=== PATIENT | male | born 1960 | race Caucasian/White ===

== ENCOUNTER → 2019-04-12 | Outpatient (CLI) | payer MEDICARE ==
[~2019-04-12] MED LIST: GADOBUTROL 7.5 MMOL/7.5 ML (GADAVIST) VIAL IV ONE; TRAM50TA2 PO
[2019-04-12 12:52] LABS: BUN/CREATININE RATIO 9; CREATININE SERUM 1.03 MG/DL (0.60-1.30); GFR ESTIMATED > 60
--- NOTE | 2019-04-12 13:33 | Diagnostic Imaging Report ---
PROCEDURE: MR imaging of the brain with and without contrast. TECHNIQUE: Multiplanar, multisequence MR imaging of the brain was performed with and without contrast. INDICATION: Headaches. Dizzy spells. Memory loss. COMPARISON: CTA head and neck on 09/26/2015. FINDINGS: No acute ischemia, mass, or hemorrhage. No abnormal enhancement. Chronic microvascular disease is seen in the periventricular and subcortical white matter. Encephalomalacia is visualized in the right frontotemporal region representing prior MCA territory infarct. The ventricles and cortical sulci are diffusely prominent. The basilar cisterns are symmetric and unremarkable. The sellar and suprasellar regions have a normal appearance. The brainstem and posterior fossa are unremarkable. The paranasal sinuses and mastoid air cells demonstrate normal signal characteristics. The globes and orbits are symmetric and unremarkable. The scalp and calvarium have a normal appearance. IMPRESSION: 1. No acute ischemia, mass, or hemorrhage. No abnormal enhancement. 2. Chronic microvascular disease. Encephalomalacia is seen in the right frontotemporal region representing prior MCA territory infarct. 3. Generalized parenchymal volume loss. Dictated by: Dictated on workstation # [id number]
== END ==
LOC: RAD 12:16
PROVIDERS: ATTEND Nurse Practitioner Primary Care
DX: G93.89 Other specified disorders of brain (principal); I10 Essential (primary) hypertension; R51 Headache; R41.3 Other amnesia; R42 Dizziness and giddiness; Z86.73 Personal history of transient ischemic attack (TIA), and cerebral infarction without residual deficits
CPT/HCPCS: 36415; 70553; 82565; 84520

== ENCOUNTER → 2020-07-17 | Outpatient (CLI) | payer MEDICARE ==
[~2020-07-17] MED LIST changes: -GADOBUTROL 7.5 MMOL/7.5 ML (GADAVIST) VIAL IV ONE; -TRAM50TA2 PO; +TRM50T PO
--- NOTE | 2020-07-17 12:49 | Diagnostic Imaging Report ---
EXAMINATION: CT Chest without contrast (lung screening). TECHNIQUE: Multiple contiguous axial images were obtained through the chest without the use of intravenous contrast according to lung cancer screening protocol. All CT scans use one or more of the following dose optimizing techniques: automated exposure control, MA and/or KvP adjustment based on a patient size and exam type, or iterative reconstruction. HISTORY: 69 pack year history of smoking. COMPARISON: None available. FINDINGS: Thyroid: The thyroid is normal. Mediastinum: Heart size is normal without significant pericardial effusion. Calcifications of the aorta and coronary vessels. Thoracic aorta is normal in caliber. No suspicious lymphadenopathy. Lungs and airways: Emphysematous changes of the lungs without consolidation, pleural effusion, or pneumothorax. Right basilar linear atelectasis or scarring. There is a 1.6 cm cystic lesion with surrounding groundglass consolidation and central septation seen within the inferior left upper lobe (series 2 image 132). There is a 0.5 cm subpleural pulmonary nodule within the anterior right middle lobe (series 2 image 159). The airways are normal. Upper abdomen: The subphrenic structures are normal. Musculoskeletal: Degenerative changes of the spine without suspicious osseous lesion or compression fracture. IMPRESSION: 1. A 1.6 cm predominantly cystic subpleural nodule within the inferior left upper lobe. Recommend three-month follow-up with low-dose CT. No significant solid component for evaluation of PET/CT or image guided biopsy. 2. A 0.5 cm right middle lobe subpleural pulmonary nodule. Attention on follow-up imaging. LUNG-RADS CATEGORY: 4a MODIFIER: None. Dictated by: Dictated on workstation # [id number]
== END ==
LOC: MERGE 06-26 11:06 → RAD 10:54
PROVIDERS: ATTEND Nurse Practitioner Family
DX: Z12.2 Encounter for screening for malignant neoplasm of respiratory organs (principal); R91.8 Other nonspecific abnormal finding of lung field; Z87.891 Personal history of nicotine dependence
CPT/HCPCS: 71271

== ENCOUNTER → 2020-10-11 | Outpatient (CLI) | payer MEDICARE ==
[~2020-10-11] MED LIST changes: +CATHETER FLUSH 10 ML SYR IV PRN; +HOLD METFORMIN - RECEIVED CONTRAST 20 ML VIAL IV SCH; +IOHEXOL 350 MG/ML 100 ML (OMNIPAQUE 350) VIAL IV ONE; +NS 100 ML (IVPB) BAG IV ONE
[2020-10-11 13:34] LABS: BUN/CREATININE RATIO 11; CREATININE SERUM 0.95 MG/DL (0.60-1.30); GFR ESTIMATED > 60
--- NOTE | 2020-10-11 15:25 | Diagnostic Imaging Report ---
PROCEDURE: CT chest with contrast only. TECHNIQUE: Multiple contiguous axial images were obtained through the chest after administration of intravenous contrast. Auto Exposure Controls were utilized during the CT exam to meet ALARA standards for radiation dose reduction. DATE: October 11, 2020. COMPARISON: Chest radiograph September 26, 2015. CT chest July 17, 2020. INDICATION: 60-year-old male, cough. FINDINGS: There are somewhat reticulonodular opacities in the superior aspect of the right lower lobe on axial image 93 measuring approximately 18 x 8 mm in size compared to 14 x 7 mm in size on July 17, 2020. There are contiguous adjacent vessels. There are upper lobe predominant findings of centrilobular and paraseptal emphysema. There is a focal area of cystic change in the left upper lobe on axial image 91 with adjacent mild opacification which is unchanged since July 17, 2020. There is no additional focal airspace consolidation. There is no pneumothorax. There is no pleural effusion. The central airways are patent. There is no identified central pulmonary embolus. There is an abnormally enlarged right hilar lymph node measuring 17 mm in short axis on axial image 95. There is no additional identified abnormally enlarged mediastinal or axillary lymph node. The heart is not enlarged. There is no pericardial effusion. There are atherosclerotic calcifications. There is no additional identified abnormality in the imaged portions of the upper abdomen. There is no identified acute bony abnormality. IMPRESSION: CT CHEST. 1. Somewhat linear and nodular area of opacification in the superior aspect of the right upper lobe which does appear to be contiguous with adjacent vessels, this measures slightly increased in size since July 17, 2020. This potentially could relate to a vascular malformation. Considering mild increase in size. PET/CT should be considered for further evaluation, particularly given the abnormally enlarged right perihilar lymph node. 2. Stable and peripheral cystic opacification in the left upper lobe. 3. Upper lobe predominant findings of emphysema. Dictated by: Dictated on workstation # [id number]
== END ==
LOC: RAD 13:01
PROVIDERS: ATTEND Nurse Practitioner Family
DX: J43.2 Centrilobular emphysema (principal)
CPT/HCPCS: 36415; 71260; 82565; 84520

== ENCOUNTER 2021-09-16 09:20 | Emergency (ER) | payer MEDICARE ==
[~2021-09-16] VITALS: Ht 185 cm; Wt 77.0 kg
[~2021-09-16 09:20] MED LIST changes: -CATHETER FLUSH 10 ML SYR IV PRN; -HOLD METFORMIN - RECEIVED CONTRAST 20 ML VIAL IV SCH; -IOHEXOL 350 MG/ML 100 ML (OMNIPAQUE 350) VIAL IV ONE; -NS 100 ML (IVPB) BAG IV ONE
[2021-09-16 10:50] LABS: ALBUMIN 4.1 GM/DL (3.2-4.5)
[2021-09-16 10:51] LABS: POTASSIUM 4.7 MMOL/L (3.6-5.0)
[2021-09-16 10:52] LABS: CALCIUM 9.7 MG/DL (8.5-10.1)
[2021-09-16 10:53] LABS: BASOPHILS # (AUTO) 0.1 10^3/uL (0.0-0.1); BASOPHILS % (AUTO) 1 % (0-10); EOSINOPHILS # (AUTO) 0.1 10^3/uL (0.0-0.3); EOSINOPHILS % (AUTO) 1 % (0-10); HEMATOCRIT 40 % (40-54); HEMOGLOBIN 13.5 g/dL (13.3-17.7); LYMPHOCYTES # (AUTO) 1.2 10^3/uL (1.0-4.0); LYMPHOCYTES % (AUTO) 12 % (12-44); MEAN CORPUSCULAR HEMOGLOBIN 29 pg (25-34); MEAN CORPUSCULAR HGB CONC 33 g/dL (32-36); MEAN CORPUSCULAR VOLUME 87 fL (80-99); MEAN PLATELET VOLUME 8.6 fL (9.0-12.2); MONOCYTES # (AUTO) 1.2 10^3/uL (0.0-1.0); MONOCYTES % (AUTO) 12 % (0-12); NEUTROPHILS # (AUTO) 7.5 10^3/uL (1.8-7.8); NEUTROPHILS % (AUTO) 74 % (42-75); PLATELET COUNT 421 10^3/uL (130-400); WHITE BLOOD COUNT 10.1 10^3/uL (4.3-11.0)
[2021-09-16 10:53] LABS: TOTAL PROTEIN 8.1 GM/DL (6.4-8.2)
[2021-09-16 10:55] LABS: BILIRUBIN,TOTAL 0.8 MG/DL (0.1-1.0)
[2021-09-16 10:59] LABS: PROTHROMBIN TIME PATIENT 13.7 SEC (12.2-14.7)
--- NOTE | 2021-09-16 11:22 | Diagnostic Imaging Report ---
EXAMINATION: Chest 2 view HISTORY: SOA COMPARISON: 10/11/2020 FINDINGS: Heart size and pulmonary vasculature are normal. There is a right-sided pneumothorax with up to 2.9 cm of pleural separation. Right basilar atelectasis or consolidation. No significant pleural effusion. Left lung is clear. The osseous structures are intact. IMPRESSION: 1. Right-sided pneumothorax with 2.9 cm of pleural separation. 2. Right basilar atelectasis or consolidation. Critical finding. Report was communicated to Dr. Flores by Dr. Ozzie Contreras at 11:18 AM on 09/16/2021. Dictated by: Dictated on workstation # [id number]
--- NOTE | 2021-09-16 12:42 | ED Respiratory ---
General Chief Complaint: Respiratory Problems Stated Complaint: SOA Nursing Triage Note: PT PRESENTS TO ED VIA POV FROM HOME WITH COMPLAINTS OF INCREASED SOA X 2-3 DAYS. PT ALSO REPORTS EAR PAIN AND NUMBNESS IN HIS ARMS. PT APPEARS ANXIOUS UPON ARRIVAL TO ED. PT STATES HE HAS AN APPOINTMENT WITH A PLUG SAW OPERATOR NEXT WEEK DUE TO HIS CHRONIC SOA HE HAS STRUGGLED WITH. Source: patient Exam Limitations: no limitations History of Present Illness Date Seen by Provider: Sep 16, 2021 Allergies and Home Medications Allergies Uncoded Allergies: asprin (Allergy, Unknown, soa, 09/26/15) Patient Home Medication List Hydrocodone/Acetaminophen (Hydrocodone-Acetamin 5-325 mg) 1 Each Tablet, 1 TAB PO Q4H PRN for PAIN-MODERATE (5-7) Prescribed by: RACHEL MAYEN on 09/16/21 1407 Tramadol HCl (Tramadol HCl) 50 Mg Tablet, 50 MG PO, (Reported) Entered as Reported by: DOLORES HUSDON on 09/26/15 1839 Past Xczjgaf-Zrjzhr-Kgjjgr Hx Patient Social History Tobacco Use?: No Smoking Status: Former Smoker Substance use?: No Additional substance use comme: USE TO EAT MARIJUANA Alcohol Use?: Yes Alcohol Frequency: Rarely Pt feels they are or have been: No Seasonal Allergies Seasonal Allergies: No Past Medical History Surgery/Hospitalization HX: PMH: CVA, HIGH CHOLESTEROL, GERD Orthopedic Physical Exam Vital Signs - First Documented 09/16/21 09:49 Temp 36.0 Pulse 97 Resp 24 B/P (MAP) 141/92 (108) Pulse Ox 94 Capillary Refill : Less Than 3 Seconds Height: 6'1" Weight: 160lbs. oz. 72.659199nc; 22.00 BMI Method: Progress/Results/Core Measures Suspected Sepsis SIRS Temperature: Pulse: 97 Respiratory Rate: 24 Laboratory Tests 09/16/21 10:47: White Blood Count 10.1 Blood Pressure 141 /92 Mean: 108 Laboratory Tests 09/16/21 09:42: Creatinine 1.00, INR Comment 1.0, Total Bilirubin 0.8 09/16/21 10:47: Platelet Count 421H Results/Orders Lab Results Laboratory Tests Test 09/16/21 09:42 09/16/21 10:47 Range/Units Prothrombin Time 13.7 12.2-14.7 SEC INR Comment 1.0 0.8-1.4 Activated Partial Thromboplast Time 30 24-35 SEC Sodium Level 129 L 135-145 MMOL/L Potassium Level 4.7 3.6-5.0 MMOL/L Chloride Level 100 98-107 MMOL/L Carbon Dioxide Level 18 L 21-32 MMOL/L Anion Gap 11 5-14 MMOL/L Blood Urea Nitrogen 12 7-18 MG/DL Creatinine 1.00 0.60-1.30 MG/DL Estimat Glomerular Filtration Rate 86 BUN/Creatinine Ratio 12 Glucose Level 119 H 70-105 MG/DL Calcium Level 9.7 8.5-10.1 MG/DL Corrected Calcium 9.6 8.5-10.1 MG/DL Magnesium Level 2.0 1.6-2.4 MG/DL Total Bilirubin 0.8 0.1-1.0 MG/DL Aspartate Amino Transf (AST/SGOT) 36 H 5-34 U/L Alanine Aminotransferase (ALT/SGPT) 30 0-55 U/L Alkaline Phosphatase 125 40-136 U/L Myoglobin 67.6 10.0-92.0 NG/ML Troponin I < 0.028 <0.028 NG/ML C-Reactive Protein High Sensitivity 5.96 H 0.00-0.50 MG/DL Total Protein 8.1 6.4-8.2 GM/DL Albumin 4.1 3.2-4.5 GM/DL White Blood Count 10.1 4.3-11.0 10^3/uL Red Blood Count 4.67 4.30-5.52 10^6/uL Hemoglobin 13.5 13.3-17.7 g/dL Hematocrit 40 40-54 % Mean Corpuscular Volume 87 80-99 fL Mean Corpuscular Hemoglobin 29 25-34 pg Mean Corpuscular Hemoglobin Concent 33 32-36 g/dL Red Cell Distribution Width 12.0 10.0-14.5 % Platelet Count 421 H 130-400 10^3/uL Mean Platelet Volume 8.6 L 9.0-12.2 fL Immature Granulocyte % (Auto) 0 % Neutrophils (%) (Auto) 74 42-75 % Lymphocytes (%) (Auto) 12 12-44 % Monocytes (%) (Auto) 12 0-12 % Eosinophils (%) (Auto) 1 0-10 % Basophils (%) (Auto) 1 0-10 % Neutrophils # (Auto) 7.5 1.8-7.8 10^3/uL Lymphocytes # (Auto) 1.2 1.0-4.0 10^3/uL Monocytes # (Auto) 1.2 H 0.0-1.0 10^3/uL Eosinophils # (Auto) 0.1 0.0-0.3 10^3/uL Basophils # (Auto) 0.1 0.0-0.1 10^3/uL Immature Granulocyte # (Auto) 0.0 0.0-0.1 10^3/uL B-Type Natriuretic Peptide < 10.0 <100.0 PG/ML My Orders Orders - RACHEL VIRGEN MD Ekg Tracing (09/16/21 10:22) Monitor-Rhythm Ecg Trace Only (09/16/21 10:22) Ed Iv/Invasive Line Start (09/16/21 10:28) Bnp Renzo (09/16/21 10:28) Cbc With Automated Diff (09/16/21 10:28) Comprehensive Metabolic Panel (09/16/21 10:28) Hs C Reactive Protein (09/16/21 10:28) Chest Pa/Lat (2 View) (09/16/21 10:44) Magnesium (09/16/21 10:44) Myoglobin Serum (09/16/21 10:44) Protime With Inr (09/16/21 10:44) Partial Thromboplastin Time (09/16/21 10:44) O2 (09/16/21 10:44) Troponin I Renzo (09/16/21 10:44) Chest 1 View, Ap/Pa Only (09/16/21 12:04) Chest 1 View, Ap/Pa Only (09/16/21 12:47) Fentanyl Inj (Sublimaze Injection) (09/16/21 13:15) Hydrocodone/Apap 5/325 Tablet (Lortab 5 (09/16/21 13:15) Medications Given in ED Current Medications Medications Dose Ordered Sig/Babak Route Start Time Stop Time Status Last Admin Dose Admin Acetaminophen/ Hydrocodone Bitart 1 ea ONCE ONCE PO 09/16/21 13:15 09/16/21 13:16 DC 09/16/21 13:15 1 EA Fentanyl Citrate 50 mcg ONCE ONCE IVP 09/16/21 13:15 09/16/21 13:16 DC 09/16/21 13:15 50 MCG Vital Signs/I&O 09/16/21 09/16/21 09:49 14:13 Temp 36.0 Pulse 97 90 Resp 24 20 B/P (MAP) 141/92 (108) 116/85 Pulse Ox 94 94 Capillary Refill : Less Than 3 Seconds Blood Pressure Mean: 108 ECG Initial ECG Impression Date: Sep 16, 2021 Initial ECG Impression Time: 09:37 Initial ECG Rate: 98 Initial ECG Rhythm: Normal Sinus Initial ECG Intervals: Normal Initial ECG Impression: Normal Comment Normal sinus rhythm with no ST elevation or depression. No abnormal intervals or axis deviation. Departure Impression Primary Impression: Spontaneous pneumothorax Additional Impression: COPD (chronic obstructive pulmonary disease) Qualified Codes: J44.9 - Chronic obstructive pulmonary disease, unspecified Disposition: 01 HOME, SELF-CARE Condition: Improved Departure-Patient Inst. Decision time for Depature: 12:35 Referrals: FELIPE DAVENPORT,LOCAL PHYSICIAN (PCP) Primary Care Physician Patient Instructions: COPD Exacerbation, Adult ED, Pneumothorax (Collapsed Lung) Add. Discharge Instructions: Keep your follow-up appointment with the cnc technician. Follow-up with Dr. Davenport (general surgeon) for follow-up on your collapsed lung. Please call his office this afternoon or tomorrow morning to confirm an appointment time. He would like to see you on Thursday about 1:00. You may shower if you can adequately cover the Thoravent in a watertight fashion. Otherwise, take a cloth or sponge bath. Call with any questions or concerns. You may continue using your albuterol inhaler up to 4 puffs in a 4-hour period of time. Return to the ER if you have any worsening of condition. All discharge instructions reviewed with patient and/or family. Voiced understanding. Scripts Hydrocodone/Acetaminophen (Hydrocodone-Acetamin 5-325 mg) 1 Each Tablet 1 TAB PO Q4H PRN for PAIN-MODERATE (5-7), #15 TAB Prov: RACHEL VIRGEN MD 09/16/21 RACHEL VIRGEN MD Sep 16, 2021 12:42
--- NOTE | 2021-09-16 13:01 | Diagnostic Imaging Report ---
INDICATION: Right chest pain Portable chest 12:47 PM There is right thoracostomy tube. There is a small right apical pneumothorax measuring 1 cm in thickness. There is minimal right basilar atelectasis. Left lung is clear. IMPRESSION: Small right pneumothorax and right basilar infiltrate or atelectasis. No change from earlier in the day. Dictated by: Dictated on workstation # [id number]
[2021-09-16] MEDS ORDERED: fentaNYL INJ 100 MCG/2 ML AMP IVP ONE (13:15)
[2021-09-16] MEDS ORDERED: HYDROcodone/APAP 5 MG/325 MG (LORTAB) TAB PO ONE (13:15)
--- NOTE | 2021-09-16 13:23 | Diagnostic Imaging Report ---
INDICATION: Pneumothorax followup. Portable chest 12:08 PM There continues to be a small right apical pneumothorax measuring 7 mm. There is infiltrate present at the right lung base. IMPRESSION: Small right apical pneumothorax with some residual right basilar infiltrate. Dictated by: Dictated on workstation # [id number]
[2021-09-16] MEDS ORDERED: ACHD5005 PO (14:06)
[2021-09-16 14:13] VITALS: BP 116/85
== END 2021-09-16 14:13 | disposition home or self-care (01) ==
LOC: EDUNIT# 09:20 → ER 09:22
DX: J93.83 Other pneumothorax (principal); J44.9 Chronic obstructive pulmonary disease, unspecified; Z87.891 Personal history of nicotine dependence
CPT/HCPCS: 32551; 36415; 71045; 71046; 80053; 83735; 83874; 83880; 84484; 85025; 85610; 85730; 86141; 93005; 93041

== ENCOUNTER 2021-09-18 14:47 | Inpatient (IN) | payer MEDICARE ==
[~2021-09-18] VITALS: Ht 185 cm; Wt 77.0 kg
[~2021-09-18 14:47] MED LIST changes: -CLOP75TA28 PO; -DICL100G13 TOP; -DIPH50CA33 PO; -EZET10TA49 PO; -FLUT1AER IH; -IBUP-1780 PO; -MAGN400T39 PO; -MULT-974 PO; -PANT40GR PO; -PANT40TA52 PO; -POTA99TA26 PO; -ROPI0.5T4 PO; -RT-ALBUINH IH; -UMEC62.5 PO
[2021-09-18] MEDS ORDERED: DICLOFENAC 1% GEL 100 GM (VOLTAREN) TUBE TOP PRN (15:15)
[2021-09-18 15:50] VITALS: BP 130/83
[2021-09-18 16:02] VITALS: BP 130/83
--- NOTE | 2021-09-18 16:19 | Diagnostic Imaging Report ---
INDICATION: Pneumothorax. Status post chest tube placement. COMPARISON: Earlier the same day. FINDINGS: Single frontal radiographic view of the chest was obtained and demonstrates interval near-complete evacuation of previously described large right-sided pneumothorax. Indwelling small bore chest tube remains in place. There is persistent consolidation of the right lung base. Left lung remains clear. There is no large effusion or pneumothorax on the left. Cardiac silhouette is partially obscured, but appears to be within normal limits. Osseous structures show no acute adverse interval change. IMPRESSION: 1. Near complete interval evacuation of right-sided pneumothorax. 2. Persistent consolidation in the right lung base. Continued follow-up to resolution is advised. Dictated by: Dictated on workstation # [id number]
[2021-09-18] MEDS ORDERED: RT-ALBUTEROL/IPRATROPIUM 3 ML (DUONEB) VIAL INH PRN (16:30)
[2021-09-18] MEDS: RT-ALBUTEROL/IPRATROPIUM 3 ML (DUONEB) VIAL INH SCH ×2 (18:34→21:45)
[2021-09-18] MEDS ORDERED: PANT40GR PO (18:41)
[2021-09-18] MEDS ORDERED: CLOP75TA28 PO (18:41)
[2021-09-18] MEDS ORDERED: EZET10TA49 PO (18:41)
[2021-09-18] MEDS: eZETimibe 10 MG (ZETIA) TABLET PO SCH (19:54)
[2021-09-18 20:17] VITALS: BP 108/70
[2021-09-18 23:49] VITALS: BP 115/73
[2021-09-19] VITALS (13 sets, daily range): BP systolic 105–135; BP diastolic 71–102
[2021-09-19] MEDS: RT-ALBUTEROL/IPRATROPIUM 3 ML (DUONEB) VIAL INH SCH ×6 (02:19→22:40)
[2021-09-19] MEDS: RT--FLUTICASONE/SALMETEROL 113-14 (AIRDUO RespiCLICK) IH SCH ×2 (06:59→19:26)
[2021-09-19] MEDS: UMECLIDINIUM BROMIDE (INCRUSE ELLIPTA) 7'S IH SCH (06:59)
--- NOTE | 2021-09-19 07:28 | Consultation - Hospitalist ---
HPI History of Present Illness: HPI/Chief Complaint Patient is 7-year-old male with past medical history of stroke, hyperlipidemia. COPD who was direct admitted from Dr. Davenport's clinic due to pneumothorax. He was seen in the emergency department on September 16 and a Thora vent was placed. He followed up with Dr. Davenport yesterday pneumothorax that expanded to 5 cm. He was admitted for further management. I am consulted for medical management. His only complaint to me is that he is very anxious regarding a CAT scan coming up. He states he will get short of breath. He is previously been premedicated with Ativan before imaging and is requesting this again. Source: patient Date Seen 09/19/21 Attending Physician Felipe Davenport DO PCP No,Local Physician Referring Physician Date of Admission Sep 18, 2021 at 14:52 Home Medications & Allergies Home Medications Reviewed patient Home Medication Reconciliation performed by pharmacy medication reconciliations food science technician and/or nursing. Patients Allergies have been reviewed. Allergies Allergies Uncoded Allergies asprin ( Allergy, Unknown, soa, 09/26/15) Past Ksbtdfe-Ryitvl-Rusjkg Hx Patient Social History Tobacco Use?: No Smoking Status: Former Smoker Smokeless Tobacco Frequency: Former User Use of E-Cig and/or Vaping dev: No Substance use?: Yes Substance type: Marijuana Substance frequency: Rarely Alcohol Use?: Yes Alcohol type: Hard Liquor Alcohol Frequency: Rarely Pt feels they are or have been: No Seasonal Allergies Seasonal Allergies: No Current Status Advance Directives: No Communicates: Verbally Primary Language: [place] Sensory deficits: Vision impairment Implanted or Applied Medical D: None Past Medical History Surgeries: Orthopedic Family Medical History Reviewed Nursing Family Hx No Pertinent Family Hx Review of Systems Constitutional: no symptoms reported EENTM: no symptoms reported Respiratory: cough, short of breath Cardiovascular: no symptoms reported Gastrointestinal: no symptoms reported Genitourinary: no symptoms reported Musculoskeletal: no symptoms reported Skin: no symptoms reported Psychiatric/Neurological: Anxiety Physical Exam Physical Exam Vital Signs Vital Signs - First Documented 09/18/21 09/18/21 09/18/21 15:35 15:50 18:34 Temp 36.8 Pulse 95 Resp 18 B/P (MAP) 130/83 (99) Pulse Ox 94 O2 Delivery Room Air FiO2 93 Capillary Refill : Height, Weight, BMI Height: 6'1" Weight: 160lbs. oz. 72.918130wy; 22.49 BMI Method: General Appearance: No Apparent Distress, Chronically ill, Thin HEENT: PERRL/EOMI, Moist Mucous Membranes; No Scleral Icterus (L), No Scleral Icterus (R) Neck: Normal Inspection, Supple Respiratory: No Accessory Muscle Use, Decreased Breath Sounds (absent breath sounds on right) Cardiovascular: Regular Rate, Rhythm, No Murmur Gastrointestinal: Normal Bowel Sounds, Non Tender Extremity: No Calf Tenderness, No Pedal Edema Neurologic/Psychiatric: Alert, Oriented x3 Results Results/Procedures Labs Laboratory Tests 09/19/21 08:36 Patient resulted labs reviewed. Imaging: Reviewed Imaging Report Imaging [facility], [place] NAME: ANDREE GARZA [facility] REC#: [id number] PT STATUS: ADM IN : 1960 PHYSICIAN: FELIPE DAVENPORT DO ADMIT DATE: 09/18/21 Signed Date of Exam:09/18/21 CHEST 1 VIEW, AP/PA ONLY INDICATION: Pneumothorax. Status post chest tube placement. COMPARISON: Earlier the same day. FINDINGS: Single frontal radiographic view of the chest was obtained and demonstrates interval near-complete evacuation of previously described large right-sided pneumothorax. Indwelling small bore chest tube remains in place. There is persistent consolidation of the right lung base. Left lung remains clear. There is no large effusion or pneumothorax on the left. Cardiac silhouette is partially obscured, but appears to be within normal limits. Osseous structures show no acute adverse interval change. IMPRESSION: 1. Near complete interval evacuation of right-sided pneumothorax. 2. Persistent consolidation in the right lung base. Continued follow-up to resolution is advised. Dictated by: Dictated on workstation # [id number] Dict: 09/18/21 1615 Trans: 09/18/211655 [facility] [id number] Interpreted by: GAURAV ANDRADE MD Electronically signed by: GAURAV ANDRADE MD 09/18/211655 [facility] [place], [place] NAME: ANDREE GARZA [facility] REC#: [id number] PT STATUS: ADM IN : 1960 PHYSICIAN: LE MARTINS MD ADMIT DATE: 09/18/21/ Signed Date of Exam:09/19/21 CHEST 1 VIEW, AP/PA ONLY INDICATION: Pneumothorax Portable chest 8:27 AM There has been increase in the volume of the right pneumothorax. It now measures 3.5 cm in diameter laterally and at the apex. There continues to be a consolidation in the right lower lung. Left lung remains clear. IMPRESSION: Interval increase in the volume of the right pneumothorax compared with previous day. Critical finding Still attempting to reach [place]. . Dictated by: Dictated on workstation # [id number] Dict: 09/19/21 0847 Trans: 09/19/21 1054 CVB [id number] Interpreted by: ALICE ABBASI MD Electronically signed by: ALICE ABBASI MD 09/19/21 1054 Assessment/Plan Assessment and Plan Assess & Plan/Chief Complaint Spontaneous pneumothorax Management per primary Plan for CT today May need IR to place pigtail catheter Anxiety Atarax available prn Ativan just prior to CT h/o CVA HLD Continue home meds COPD Continue home inhalers MAT protocol DVT ppx: Lovenox LE MARTINS MD Sep 19, 2021 07:28
--- NOTE | 2021-09-19 07:33 | Progress Note - Surgery ---
VLAD PALMER 09/19/21 0733: Subjective Date Seen by a Provider: Sep 19, 2021 Time Seen by a Provider: 06:54 Subjective/Events-last exam Pt reports that that his breathing feels worse today than it did yesterday. Reports that he is getting SOB when he gets up and walks to the bathroom or across the room to get items. States that he has been wheezing also. Pt is concerned about why his breathing is not improving. When asked he does endorse that he was using his incentive spirometer and he said he used it about 10-15 times yesterday. Review of Systems General: No Chills, No Night Sweats HEENT: No Visual Changes, No Eye Pain Pulmonary: Dyspnea, Cough Cardiovascular: No: Chest Pain, Palpitations Gastrointestinal: No: Nausea, Vomiting, Abdominal Pain Musculoskeletal: No: neck pain, back pain Neurological: No: Weakness, Numbness Objective Exam Vital Signs Date Time Temp Pulse Resp B/P (MAP) Pulse Ox O2 Delivery O2 Flow Rate FiO2 09/19/21 07:10 Room Air 09/19/21 07:08 Room Air 09/19/21 07:03 Room Air 93 09/19/21 03:55 36.6 93 18 126/78 (94) 93 Room Air 09/19/21 02:19 Room Air 93 09/18/21 23:49 36.4 93 18 115/73 (87) 95 Room Air 09/18/21 21:50 Room Air 94 09/18/21 21:46 Room Air 94 09/18/21 20:17 37.0 91 19 108/70 (83) 93 Room Air 09/18/21 20:14 Room Air 09/18/21 18:34 Room Air 93 09/18/21 16:02 36.8 95 94 09/18/21 15:50 36.8 95 18 130/83 (99) 94 Room Air 09/18/21 15:35 Room Air I & O 09/19/21 07:00 Intake Total 2070 ml Balance 2070 ml Capillary Refill : General Appearance: WD/WN, Anxious HEENT: PERRL/EOMI; No Photophobia Neck: Non Tender, Supple Respiratory: No Accessory Muscle Use, No Respiratory Distress, Decreased Breath Sounds (in right upper and middle lobe) Cardiovascular: Regular Rate, Rhythm, No Murmur, Normal Peripheral Pulses Gastrointestinal: non tender, soft Extremity: Normal Capillary Refill, Non Tender, No Calf Tenderness Neurologic/Psychiatric: Alert, Oriented x3 Skin: Normal Color, Warm/Dry Lymphatic: No Adenopathy Assessment/Plan Assessment/Plan Assessment/Plan Right pneumothorax COPD HLD GERD History of CVA Anxiety Plan Will get CXR today to check if pneumothorax is improving. Thoravent in place and hooked to suction. No bubbles seen in atrium this AM. If CXR shows improvement can consider clamping suction today. Continue Duoneb, Airduo, and incruse ellipta breathing treatments, his is being followed by RT Continue using incentive spirometry and ambulation Continue Protonix for GERD and hydroxyzine for anxiety FELIPE ALVAREZ DO 09/19/212011: Subjective Subjective/Events-last exam Patient breathing slightly worse this morning. Worsening when he is moving around. Chest x ray this morning showing increasing right pneumothorax. Patientno other complaints at this time. Objective Exam General Appearance: No Apparent Distress, Anxious HEENT: PERRL/EOMI, Normal ENT Inspection Neck: Non Tender, Supple Respiratory: No Accessory Muscle Use, No Respiratory Distress, Decreased Breath Sounds (in right upper and middle lobe) Cardiovascular: Regular Rate, Rhythm, No JVD Gastrointestinal: non tender, soft Extremity: Normal Capillary Refill, Non Tender Neurologic/Psychiatric: Alert, Oriented x3 Skin: Normal Color, Warm/Dry Lymphatic: No Adenopathy Assessment/Plan Assessment/Plan Assessment/Plan Right pneumothorax COPD HLD GERD History of CVA Anxiety Plan Will get CXR today to check if pneumothorax is improving. Thoravent in place and hooked to atrium. No bubbles seen in atrium, but one way valve moving. Continue Duoneb, Airduo, and incruse ellipta breathing treatments, his is being followed by RT Continue using incentive spirometry and ambulation Continue Protonix for GERD and hydroxyzine for anxiety CT scan chest Supervisory-Addendum Brief Verification & Attestation Participated in pt care: history, MDM, physical Personally performed: exam, history, MDM, supervision of care Care discussed with: Medical Student Procedures: n/a Results interpretation: Verified all documentation Verification and Attestation of Medical Student E/M Service A medical student performed and documented this service in my presence. I reviewed and verified all information documented by the medical student and made modifications to such information, when appropriate. I personally performed the physical exam and medical decision making. Felipe Alvarez, Sep 19, 2021,10:04 VLAD PALMER Sep 19, 2021 07:33 FELIPE ALVAREZ DO Sep 19, 2021 20:12
[2021-09-19] MEDS ORDERED: FLUTICASONE/VILANTEROL 100 MCG 14'S (BREO) IH SCH (08:00)
[2021-09-19] MEDS: PANTOPRAZOLE 40 MG (PROTONIX) TAB PO SCH ×2 (08:13→08:14)
[2021-09-19] MEDS ORDERED: CLOP75TA28 PO (08:24)
[2021-09-19] MEDS ORDERED: RT-ALBUINH IH (08:25)
[2021-09-19] MEDS ORDERED: ROPI0.5T4 PO (08:26)
[2021-09-19] MEDS ORDERED: UMEC62.5 PO (08:27)
[2021-09-19] MEDS ORDERED: FLUT1AER IH (08:28)
[2021-09-19] MEDS ORDERED: IBUP-1780 PO (08:29)
[2021-09-19] MEDS ORDERED: DICL100G13 TOP (08:30)
[2021-09-19] MEDS ORDERED: MAGN400T39 PO (08:30)
[2021-09-19] MEDS ORDERED: POTA99TA26 PO (08:31)
[2021-09-19] MEDS ORDERED: MULT-974 PO (08:31)
[2021-09-19] MEDS ORDERED: DIPH50CA33 PO (08:32)
[2021-09-19] MEDS ORDERED: PANT40TA52 PO (08:34)
[2021-09-19 08:52] LABS: HEMATOCRIT 40 % (40-54); HEMOGLOBIN 13.2 g/dL (13.3-17.7); MEAN CORPUSCULAR HEMOGLOBIN 29 pg (25-34); MEAN CORPUSCULAR HGB CONC 33 g/dL (32-36); MEAN CORPUSCULAR VOLUME 86 fL (80-99); MEAN PLATELET VOLUME 8.7 fL (9.0-12.2); PLATELET COUNT 464 10^3/uL (130-400); WHITE BLOOD COUNT 6.7 10^3/uL (4.3-11.0)
[2021-09-19 09:32] LABS: POTASSIUM 4.5 MMOL/L (3.6-5.0)
[2021-09-19 09:33] LABS: CALCIUM 9.7 MG/DL (8.5-10.1)
[2021-09-19 09:37] LABS: CREATININE SERUM 0.95 MG/DL (0.60-1.30)
--- NOTE | 2021-09-19 10:21 | Diagnostic Imaging Report ---
INDICATION: Pneumothorax Portable chest 8:27 AM There has been increase in the volume of the right pneumothorax. It now measures 3.5 cm in diameter laterally and at the apex. There continues to be a consolidation in the right lower lung. Left lung remains clear. IMPRESSION: Interval increase in the volume of the right pneumothorax compared with previous day. Critical finding Still attempting to reach [place]. . Dictated by: Dictated on workstation # [id number]
--- NOTE | 2021-09-19 10:42 | Diagnostic Imaging Report ---
INDICATION: Follow-up pneumothorax. COMPARISON: Earlier same day. FINDINGS: Single frontal radiographic view of the chest was obtained and again demonstrates indwelling right-sided small-bore chest tube. There has been interval increase in moderate right-sided pneumothorax. Cardiomediastinal structures remain midline. There is persistent partial opacification of the mostly collapsed right lung. Left lung remains relatively clear. There is no large effusion or pneumothorax on the left. Heart size is within normal limits. IMPRESSION: 1. Interval increase in size of right-sided pneumothorax. Dictated by: Dictated on workstation # [id number]
[2021-09-19] MEDS: HYDROcodone/APAP 5 MG/325 MG (LORTAB) TAB PO PRN ×3 (11:36→20:07)
[2021-09-19] MEDS ORDERED: LORazepam 0.5 MG (ATIVAN) TABLET PO NR (12:15)
[2021-09-19] MEDS ORDERED: NS IV 1000 ML 1,000 ML ONE (13:09)
[2021-09-19] MEDS ORDERED: MIDAZOLAM 2 MG/2 ML (VERSED) VIAL ONE (13:09)
[2021-09-19] MEDS ORDERED: fentaNYL INJ 100 MCG/2 ML AMP ONE (13:09)
[2021-09-19] MEDS ORDERED: LIDOCAINE 1% INJ 20 ML VIAL ONE (13:09)
[2021-09-19] MEDS ORDERED: MIDAZOLAM 2 MG/2 ML (VERSED) VIAL INJ ONE (13:15)
[2021-09-19] MEDS ORDERED: LIDOCAINE 1% INJ 20 ML VIAL INJ ONE (13:15)
[2021-09-19] MEDS ORDERED: fentaNYL INJ 100 MCG/2 ML AMP INJ ONE (13:15)
--- NOTE | 2021-09-19 14:23 | Diagnostic Imaging Report ---
PROCEDURE: CT chest without contrast. TECHNIQUE: Multiple contiguous axial images were obtained through the chest without the use of intravenous contrast. Auto Exposure Controls were utilized during the CT exam to meet ALARA standards for radiation dose reduction. INDICATION: Pneumothorax. CORRELATION is made with chest CT from 10/11/2020. FINDINGS: The patient does have a very large right sided pneumothorax. There is a right anterior chest wall Thora-Vent which only has the tip located in the pleural space. There is significant consolidation to the right lower lobe with air bronchograms. Left lung is mostly clear although there is a peripheral based left upper lobe cystic lesion. No definite pericardial or pleural fluid is identified. Upper abdomen is unremarkable. IMPRESSION: Development of a large right-sided pneumothorax with significant consolidation and atelectasis in the right lower lobe. The right chest wall Thora-Vent catheter appears to be largely pulled back with only the tip located in the pleural space. This will be discontinued and a pigtail pleural tube will be placed at the completion of this exam. Dictated by: Dictated on workstation # [id number]
--- NOTE | 2021-09-19 14:30 | Diagnostic Imaging Report ---
INDICATION: Right-sided pneumothorax. Patient presents for CT-guided pleural chest tube placement. TECHNIQUE: All CT scans use one or more of the following dose optimizing techniques: automated exposure control, MA and/or KvP adjustment based on patient size and exam type or iterative reconstruction. Patient was brought to the CT suite and placed on the table in supine position. Axial imaging through the chest was performed to evaluate appropriate entry site. Procedure was performed utilizing conscious sedation with radiology nursing and constant patient monitoring. Patient was given a total of 50 mcg of fentanyl intravenously and 1 mg of Versed intravenously. Total procedure time was approximately 22 minutes. Right lateral chest was prepped and draped in the usual sterile fashion. A small amount of 1% lidocaine was utilized for local anesthesia. A datatracker needle was advanced into the right basilar pleural space. This was exchanged over a 0.035 Amplatz wire. 6, 8, 10, and 12-[place] dilators were then passed over the guidewire for tract dilatation. A 12-[place] all-purpose pigtail drain was then placed over the wire. A loop was formed in the right basilar pleural space. This will be placed to an Atrium device for air evacuation. The patient's right anterior chest wall Thora-Vent chest tube was removed. Post-procedural imaging does show a moderate decrease in the size of the right-sided pneumothorax. There continues to be moderate amount of atelectasis in the right lower lobe. The right basilar pigtail drain is in place. There is a moderate amount of subcutaneous emphysema along the right anterior chest wall. Patient tolerated the procedure well and left the department in stable condition. IMPRESSION: Successful CT-guided right pleural space pigtail catheter placement utilizing conscious sedation. The right anterior chest wall Thora-Vent chest tube was discontinued and dressing applied. Dictated by: Dictated on workstation # [id number]
[2021-09-19] MEDS: NS IV 1000 ML 1,000 ML IV SCH (15:50)
[2021-09-19] MEDS: eZETimibe 10 MG (ZETIA) TABLET PO SCH (20:06)
[2021-09-19] MEDS: rOPINIRole 0.25 MG (REQUIP) TAB PO PRN (20:09)
[2021-09-19] MEDS: hydrOXYzine (ATARAX) 10 MG TAB PO PRN (21:23)
[2021-09-20] MEDS: NS IV 1000 ML 1,000 ML IV SCH ×3 (01:41→21:12)
[2021-09-20] MEDS: HYDROcodone/APAP 5 MG/325 MG (LORTAB) TAB PO PRN (03:01)
[2021-09-20 03:52] VITALS: BP 110/79
--- NOTE | 2021-09-20 06:57 | Progress Note - Surgery ---
VLAD PALMER 09/20/21 0657: Subjective Date Seen by a Provider: Sep 20, 2021 Time Seen by a Provider: 06:43 Subjective/Events-last exam Pt reports that he is doing well this morning and asked multiple times if he could go home today. When asked he denied having any SOB or any other difficulties breathing. Pt had a pigtail pleural tube placed yesterday due to increasing right pneumothorax. Today pt is still on suction and the atrium has bubbles in it with every breath. States that he has been using his incentive spirometer often. Pt denied having any other concerns. Review of Systems General: No Chills, No Night Sweats HEENT: No Head Aches, No Visual Changes Pulmonary: No Dyspnea, No Cough Cardiovascular: No: Chest Pain, Palpitations Gastrointestinal: No: Nausea, Vomiting, Abdominal Pain Musculoskeletal: No: neck pain, back pain Neurological: No: Weakness, Numbness Objective Exam Vital Signs Date Time Temp Pulse Resp B/P (MAP) Pulse Ox O2 Delivery O2 Flow Rate FiO2 09/20/21 03:52 36.2 96 18 110/79 (89) 95 Room Air 09/19/21 23:55 36.8 86 18 122/80 (94) 97 Room Air 09/19/21 23:22 85 90 21 09/19/21 20:00 Room Air 09/19/21 19:46 37.2 100 20 114/79 (91) 91 Room Air 09/19/21 19:34 Room Air 90 09/19/21 19:26 Room Air 90 09/19/21 16:00 36.4 89 20 131/77 (95) 94 Room Air 09/19/21 15:29 Room Air 95 09/19/21 14:00 104 17 135/102 94 Room Air 09/19/21 13:55 99 19 114/94 94 Room Air 09/19/21 13:50 101 24 110/89 97 Nasal Cannula 4.00 09/19/21 13:45 96 13 105/83 97 Nasal Cannula 4.00 09/19/21 13:40 96 25 108/79 97 Nasal Cannula 4.00 09/19/21 13:35 95 25 120/82 96 Nasal Cannula 4.00 09/19/21 13:30 98 19 126/90 98 Nasal Cannula 4.00 09/19/21 11:19 36.8 90 20 127/71 (89) 93 Room Air 09/19/21 10:47 Room Air 94 09/19/21 08:00 Room Air 09/19/21 07:30 37.4 97 22 129/79 (96) 93 Room Air 09/19/21 07:10 Room Air 09/19/21 07:08 Room Air 09/19/21 07:03 Room Air 93 I & O 09/20/21 07:00 Intake Total 2160 ml Output Total 305 ml Balance 1855 ml Capillary Refill : General Appearance: No Apparent Distress, WD/WN HEENT: PERRL/EOMI; No Photophobia Neck: Non Tender, Supple Respiratory: Chest Non Tender, No Accessory Muscle Use, No Respiratory Distress, Decreased Breath Sounds (on right side) Cardiovascular: Regular Rate, Rhythm, No JVD, Normal Peripheral Pulses Gastrointestinal: non tender, soft Extremity: Normal Capillary Refill, Non Tender, No Pedal Edema Neurologic/Psychiatric: Alert, Oriented x3 Skin: Normal Color, Warm/Dry Lymphatic: No Adenopathy Results Lab Laboratory Tests 09/19/21 08:36: White Blood Count 6.7, Red Blood Count 4.58, Hemoglobin 13.2L, Hematocrit 40, Mean Corpuscular Volume 86, Mean Corpuscular Hemoglobin 29, Mean Corpuscular Hemoglobin Concent 33, Red Cell Distribution Width 12.1, Platelet Count 464H, Mean Platelet Volume 8.7L, Sodium Level 132L, Potassium Level 4.5, Chloride Level 101, Carbon Dioxide Level 21, Anion Gap 10, Blood Urea Nitrogen 8, Creatinine 0.95, Estimat Glomerular Filtration Rate 92, BUN/Creatinine Ratio 8, Glucose Level 103, Calcium Level 9.7 Assessment/Plan Assessment/Plan Assessment/Plan Right pneumothorax COPD HLD GERD History of CVA Anxiety DVT prophylaxis Plan Pigtail pleural tube placed by radiology yesterday due to increasing pneumothorax with Thoravent. Pt is on suction. Air bubbles seen in atrium. May need CXR to see if pneumothorax is improving. Continue to monitor Continue Duoneb, Airduo, and incruse ellipta breathing treatments, he is being followed by RT Continue using incentive spirometry and ambulation Continue Protonix for GERD, hydroxyzine for anxiety, and plavix for DVT prophylaxis FELIPE ALVAREZ DO 09/20/21 1438: Subjective Subjective/Events-last exam Patient breathing better. Anxious and upset that he had that chest tube placed yesterday. Upset due to it not being done in the operating room. Upset about being in the hospital and wanting out. Considering wanting to go somewhere else. He is upset that Dr. Martinez put the tube in and not me and not being explained that. I showed him the consent and Dr. Martinez was doing it, and then states he didn't remember discussing that it wasn't going to be done. Patient upset that the tube was kinked. Chest x ray showing decreased pneumothorax. Denies n/v fever sweats chills shortness of breath or chest pain. Objective Exam General Appearance: No Apparent Distress, Anxious, Chronically ill, Thin HEENT: PERRL/EOMI, Normal ENT Inspection Neck: Non Tender, Supple Respiratory: Chest Non Tender, No Accessory Muscle Use, No Respiratory Distress Cardiovascular: Regular Rate, Rhythm, No JVD Gastrointestinal: non tender, soft Extremity: Non Tender Neurologic/Psychiatric: Alert, Oriented x3 Skin: Normal Color, Warm/Dry Lymphatic: No Adenopathy Assessment/Plan Assessment/Plan Assessment/Plan Right pneumothorax COPD HLD GERD History of CVA Anxiety DVT prophylaxis Plan Thoracostomy tube in place, with decreasing pneumothorax, chest x ray in am unless has more difficulties and would do then. Atrium on suction, leak present. Continue Duoneb, Airduo, and incruse ellipta breathing treatments Continue using incentive spirometry and ambulation Continue Protonix for GERD, hydroxyzine for anxiety, and plavix for DVT prophylaxis Supervisory-Addendum Brief Verification & Attestation Participated in pt care: history, MDM, physical Personally performed: exam, history, MDM, supervision of care Care discussed with: Medical Student Procedures: n/a Results interpretation: Verified all documentation Verification and Attestation of Medical Student E/M Service A medical student performed and documented this service in my presence. I reviewed and verified all information documented by the medical student and made modifications to such information, when appropriate. I personally performed the physical exam and medical decision making. Felipe Alvarez, Sep 20, 2021,14:38 VLAD PALMER Sep 20, 2021 06:57 FELIPE ALVAREZ DO Sep 20, 2021 14:38
[2021-09-20] MEDS: UMECLIDINIUM BROMIDE (INCRUSE ELLIPTA) 7'S IH SCH (07:15)
[2021-09-20] MEDS: RT--FLUTICASONE/SALMETEROL 113-14 (AIRDUO RespiCLICK) IH SCH ×2 (07:15→22:23)
[2021-09-20] MEDS: RT-ALBUTEROL/IPRATROPIUM 3 ML (DUONEB) VIAL INH SCH ×4 (07:15→22:23)
[2021-09-20 07:30] VITALS: BP 113/74
[2021-09-20] MEDS: PANTOPRAZOLE 40 MG (PROTONIX) TAB PO SCH (08:20)
[2021-09-20] MEDS: CLOPIDOGREL 75 MG (PLAVIX) TABLET PO SCH (08:21)
--- NOTE | 2021-09-20 10:00 | Diagnostic Imaging Report ---
INDICATION: Pneumothorax, follow-up. TECHNIQUE: Single view chest 9:46 AM. CORRELATION STUDY: 09/19/2021 FINDINGS: The small caliber tube over the right upper chest has been removed and there has been placement of a pigtail catheter over the right lower chest. Significant reduction in the previously noted right-sided pneumothorax. Small pneumothorax does remain particularly along its right apical aspect. Increased amount of subcutaneous gas over the right chest wall and neck. Asymmetric opacity through the right lung may reflect residual atelectasis and/or edema. Left lung hyperinflated but overall clear. There is mild shift of the mediastinal structures into the right hemithorax. Prominent gas-filled loops of bowel noted in the upper abdomen, nonspecific. IMPRESSION: 1. Removal of the right upper small caliber thoracostomy tube with placement of pigtail catheter at the right costophrenic angle. Significant reduction of the right pneumothorax with small pneumothorax remaining. Development of extensive soft tissue gas over the right chest and neck. 2. Opacity through the right lung likely residual atelectasis and/or edema versus infiltrate. Dictated by: Dictated on workstation # [id number]
--- NOTE | 2021-09-20 10:56 | Progress Note - Hospitalist ---
Subjective HPI/CC On Admission Date Seen by Provider: Sep 20, 2021 Time Seen by Provider: 10:52 Patient is 7-year-old male with past medical history of stroke, hyperlipidemia. COPD who was direct admitted from Dr. Alvarez's clinic due to pneumothorax. He was seen in the emergency department on September 16 and a Thora vent was placed. He followed up with Dr. Alvarez yesterday pneumothorax that expanded to 5 cm. He was admitted for further management. I am consulted for medical management. His only complaint to me is that he is very anxious regarding a CAT scan coming up. He states he will get short of breath. He is previously been premedicated with Ativan before imaging and is requesting this again. Subjective/Events-last exam Pt reports breathing much better today. States his chest tube was kinked off either and that "pissed me off." States he could have been out of the hospital 2-3 days ago had that not happened this morning. I reminded him he has not yet been in the hospital 48 hours so that would be impossible. He shrugged and states he's ready to leave the hospital [place] and asks if I have his discharge papers. Objective Exam Vital Signs Vital Signs Date Time Temp Pulse Resp B/P (MAP) Pulse Ox O2 Delivery O2 Flow Rate FiO2 09/20/21 07:30 36.8 91 16 113/74 (87) 93 Room Air 09/20/21 07:16 90 09/19/21 13:50 4.00 Capillary Refill : General Appearance: No Apparent Distress, Chronically ill, Thin Respiratory: No Respiratory Distress, Decreased Breath Sounds (on right though present and improved from yesterday), Other (chest tube in place) Cardiovascular: Regular Rate, Rhythm, No Murmur Neurologic/Psychiatric: Alert, Oriented x3 Results/Procedures Lab Patient resulted labs reviewed. Imaging: Reviewed Imaging Report Assessment/Plan Assessment and Plan Assess & Plan/Chief Complaint Spontaneous pneumothorax Management per primary PIg tail catheter by IR yesterday CXR showed reduction on pnthx this AM Anxiety Atarax available prn Ativan just prior to CT and he tolerated it well h/o CVA HLD Continue home meds COPD Continue home inhalers MAT protocol DVT ppx: Lovenox Will round prn, please call if needed LE MARTINS MD Sep 20, 2021 10:56
[2021-09-20 11:59] VITALS: BP 121/67
[2021-09-20 16:21] VITALS: BP 153/73
[2021-09-20 19:51] VITALS: BP 118/72
[2021-09-20] MEDS: eZETimibe 10 MG (ZETIA) TABLET PO SCH (21:12)
[2021-09-21] VITALS (7 sets, daily range): BP systolic 103–140; BP diastolic 53–84
[2021-09-21] MEDS: NS IV 1000 ML 1,000 ML IV SCH ×2 (06:39→15:42)
[2021-09-21] MEDS: HYDROcodone/APAP 5 MG/325 MG (LORTAB) TAB PO PRN ×4 (06:47→20:16)
--- NOTE | 2021-09-21 07:03 | Diagnostic Imaging Report ---
EXAMINATION: Chest radiograph, portable AP view. DATE: 09/21/2021 6:34 AM INDICATION: 61-year-old male, right-sided pneumothorax. COMPARISON: September 20, 2021. FINDINGS: There is a right-sided chest tube again noted. There is a right-sided pneumothorax measuring up to approximately 1.5 cm from the lateral chest wall which previously measured 1.1 cm. This is measuring mildly increased in size. Heart size and mediastinal contours are unchanged. There is subcutaneous gas overlying the right chest. There are streaky opacities in the right lung which appear unchanged. The left lung appears grossly clear. IMPRESSION: 1. Small to moderate right-sided pneumothorax which measures mildly increased in size since comparison exam. 2. Redemonstrated and unchanged appearance of consolidation in the right lung. 3. Subcutaneous gas overlying the right chest is again noted and essentially unchanged. Dictated by: Dictated on workstation # [id number]
--- NOTE | 2021-09-21 07:45 | Progress Note - Surgery ---
VLAD PALMER 09/21/21 0745: Subjective Date Seen by a Provider: Sep 21, 2021 Time Seen by a Provider: 07:06 Subjective/Events-last exam Pt reports that his breathing has improved from yesterday. Air bubbles still present in atrium with breathing. States that he has been using his incentive spirometer often and is walking around his room. He appears to be in a better mood today and is more relaxed than he was yesterday. Denies having any other concerns when asked. Review of Systems General: No Chills, No Night Sweats HEENT: No Head Aches, No Visual Changes Pulmonary: No Dyspnea, No Cough Cardiovascular: No: Chest Pain, Palpitations Gastrointestinal: No: Nausea, Vomiting, Abdominal Pain Musculoskeletal: No: shoulder pain, back pain Neurological: No: Weakness, Numbness Objective Exam Vital Signs Date Time Temp Pulse Resp B/P (MAP) Pulse Ox O2 Delivery O2 Flow Rate FiO2 09/21/21 07:35 37.1 77 20 121/81 (94) 90 Room Air 09/21/21 03:55 36.6 90 21 133/84 (100) 94 Room Air 09/21/21 00:00 36.5 100 17 126/73 (90) 95 Room Air 09/20/21 22:26 Room Air 95 09/20/21 20:00 Room Air 09/20/21 19:51 36.6 112 18 118/72 (87) 95 Room Air 09/20/21 16:21 36.4 113 22 153/73 (99) 91 Room Air 09/20/21 15:39 Room Air 93 09/20/21 11:59 36.9 92 18 121/67 (85) 93 Room Air 09/20/21 08:30 Room Air I & O 09/21/21 06:59 Intake Total 2600 ml Output Total 150 ml Balance 2450 ml Capillary Refill : General Appearance: No Apparent Distress, Chronically ill, Thin HEENT: PERRL/EOMI; No Photophobia Neck: Non Tender, Supple Respiratory: Chest Non Tender, No Accessory Muscle Use, No Respiratory Distress, Decreased Breath Sounds (on right, worsen in upper lobe) Cardiovascular: Regular Rate, Rhythm, No JVD Gastrointestinal: non tender, soft Extremity: Non Tender, No Pedal Edema Neurologic/Psychiatric: Alert, Oriented x3 Skin: Normal Color, Warm/Dry Lymphatic: No Adenopathy Assessment/Plan Assessment/Plan Assessment/Plan Right pneumothorax COPD HLD GERD History of CVA Anxiety DVT prophylaxis Plan Thoracostomy tube in place, according to radiology on CXR this AM right pneumothorax was mildly increased from yesterday, Atrium on suction, leak pre sent. Continue Duoneb, Airduo, and incruse ellipta breathing treatments Continue using incentive spirometry and ambulation Continue Protonix for GERD, hydroxyzine for anxiety, and plavix for DVT prophylaxis FELIPE ALVAREZ DO 09/21/212153: Subjective Subjective/Events-last exam Patient breathing slightly improved he states. He is using incentive spirometer. Patient still with air leak in atrium. Patient chest x-ray small to moderate sized right pneumothorax. Patient with pigtail catheter right chest. Patient with no other complaints at this time. Denies any nausea vomi ting fever sweats chills shortness of breath or chest pain at this time Objective Exam General Appearance: Anxious, Chronically ill, Thin HEENT: PERRL/EOMI Neck: Non Tender, Supple Respiratory: Chest Non Tender, No Accessory Muscle Use, No Respiratory Distress, Decreased Breath Sounds (on right,) Cardiovascular: Regular Rate, Rhythm, No JVD Gastrointestinal: non tender, soft Extremity: Normal Inspection, Non Tender Neurologic/Psychiatric: Alert, Oriented x3 Skin: Normal Color, Warm/Dry Lymphatic: No Adenopathy Assessment/Plan Assessment/Plan Assessment/Plan Right pneumothorax COPD HLD GERD History of CVA Anxiety Plan Thoracostomy tube in place, according to radiology on CXR this AM right pneumothorax was mildly increased from yesterday, Atrium on suction, leak present. Will evaluate with CT chest to see if can see cause since lung further expanded than before Continue Duoneb, Airduo, and incruse ellipta breathing treatments Continue using incentive spirometry and ambulation Continue Protonix for GERD, hydroxyzine for anxiety, and plavix for DVT prophylaxis Patient with persistent pneumothorax may need second thoracostomy tube will await ct results. Supervisory-Addendum Brief Verification & Attestation Participated in pt care: history, MDM, physical Personally performed: exam, history, MDM, supervision of care Care discussed with: Medical Student Procedures: n/a Results interpretation: Verified all documentation Verification and Attestation of Medical Student E/M Service A medical student performed and documented this service in my presence. I reviewed and verified all information documented by the medical student and made modifications to such information, when appropriate. I personally performed the physical exam and medical decision making. Felipe Alvarez, Sep 21, 2021,08:59 VLAD PALMER Sep 21, 2021 07:45 FELIPE ALVAREZ DO Sep 21, 2021 21:54
[2021-09-21] MEDS: RT-ALBUTEROL/IPRATROPIUM 3 ML (DUONEB) VIAL INH SCH ×3 (07:58→15:25)
[2021-09-21] MEDS: UMECLIDINIUM BROMIDE (INCRUSE ELLIPTA) 7'S IH SCH (07:58)
[2021-09-21] MEDS: RT--FLUTICASONE/SALMETEROL 113-14 (AIRDUO RespiCLICK) IH SCH (07:58)
[2021-09-21] MEDS: PANTOPRAZOLE 40 MG (PROTONIX) TAB PO SCH (09:05)
[2021-09-21] MEDS: CLOPIDOGREL 75 MG (PLAVIX) TABLET PO SCH (09:05)
--- NOTE | 2021-09-21 10:26 | Diagnostic Imaging Report ---
PROCEDURE: CT chest without contrast. TECHNIQUE: Multiple contiguous axial images were obtained through the chest without the use of intravenous contrast. Auto Exposure Controls were utilized during the CT exam to meet ALARA standards for radiation dose reduction. INDICATION: Pneumothorax. There continues to be a moderate-sized right pneumothorax. The patient does have a pigtail pleural catheter positioned in the right base. There is significant consolidation in the right lower lobe. There is increased soft tissue in the right hilar region which appears to encase the right lower lobe bronchus. This is concerning for a mass. There is also a rounded consolidation versus mass in the posterior right lower lobe. There is some associated consolidation in the right upper lobe posteriorly as well as the right lower lobe with air bronchograms. The left lung is clear. There is no definite pericardial or pleural fluid. Upper abdomen is unremarkable. There is subcutaneous throughout the right chest wall. IMPRESSION: There continues to be a moderate-sized right pneumothorax despite pleural catheter placement. There is a fair amount of consolidation in the posterior right upper lobe and right lower lobe. There is rounded mass-like densities in the right lower lobe as well as in the region of the right hilum, concerning for neoplasm. Bronchoscopy of the right hilar mass could be considered. Dictated by: Dictated on workstation # [id number]
[2021-09-21] MEDS: rOPINIRole 0.25 MG (REQUIP) TAB PO PRN ×2 (14:06→22:45)
[2021-09-21] MEDS ORDERED: LIDOCAINE/EPI 2% 1:200,00 (XYLOCAINE) 20 ML VIAL INJ ONE (15:15)
--- NOTE | 2021-09-21 16:05 | Diagnostic Imaging Report ---
INDICATION: Right-sided Thora-Vent placement. TIME OF EXAM: 3:41 PM. COMPARISON: Correlation is made with study earlier the same day. Pigtail pleural catheter overlies the right base. There has been placement of a right-sided Thora-Vent catheter. There has been slight decrease in the right side pneumothorax. There continues to be some infiltrate in the right base. Left lung is clear. IMPRESSION: Right thoracotomy catheter placement. There has been slight decrease in size of right side pneumothorax. Dictated by: Dictated on workstation # [id number]
[2021-09-21] MEDS: hydrOXYzine (ATARAX) 10 MG TAB PO PRN (18:06)
[2021-09-21] MEDS: eZETimibe 10 MG (ZETIA) TABLET PO SCH (20:15)
--- NOTE | 2021-09-21 21:17 | OPERATIVE REPORT ---
DATE OF SERVICE: 09/21/2021 PREOPERATIVE DIAGNOSIS: Right pneumothorax. POSTOPERATIVE DIAGNOSIS: Right pneumothorax. PROCEDURE: Right chest Thora-Vent placement. SURGEON: Felipe Alvarez DO ANESTHESIA: Local. ESTIMATED BLOOD LOSS: Minimal. COMPLICATIONS: None. INDICATIONS: The patient is a 61-year-old male with continued right pneumothorax. He already has a pigtail catheter in attached to an atrium, but has continued air leak. He was discussed risks and benefits, and options and he understands and wishes to proceed with a right chest Thora-Vent placement. Consent was signed in the chart. DESCRIPTION OF PROCEDURE: The patient was prepped and draped in sterile fashion. Timeout was performed. A 5 mL of 1% lidocaine with epinephrine was used to anesthetize the area. An #11 blade scalpel was used to make a small skin incision between the 2nd and 3rd intercostal space midclavicular line. The Thora-Vent trocar was then inserted through the chest wall until popped into the chest cavity and the catheter was then advanced over the trocar. This was secured in the usual fashion. The patient had lumen of the one-way valve. This was then hooked up to the atrium after it was secured. The patient tolerated the procedure well without any complications. Chest x-ray pending. Job ID: [id number] DocumentID: [id number] Dictated Date: 09/21/2021 20:10:40 Ribber Date: 09/21/2021 21:15:31 Dictated By: FELIPE ALVAREZ DO
[2021-09-22] MEDS: NS IV 1000 ML 1,000 ML IV SCH (03:28)
[2021-09-22 04:00] VITALS: BP 121/73
[2021-09-22] MEDS: hydrOXYzine (ATARAX) 10 MG TAB PO PRN (08:06)
[2021-09-22] MEDS: CLOPIDOGREL 75 MG (PLAVIX) TABLET PO SCH (08:06)
[2021-09-22] MEDS: PANTOPRAZOLE 40 MG (PROTONIX) TAB PO SCH (08:06)
== END 2021-09-22 09:10 | disposition short-term general hospital (02) | DRG 201 ==
LOC: 4TH 14:52
PROVIDERS: ADMIT Surgery; ATTEND Surgery
PROC: 0W9930Z Drainage of Right Pleural Cavity with Drainage Device, Percutaneous Approach (ICD-10-PCS; 2021-09-19)
PROC: 0WP9X0Z Removal of Drainage Device from Right Pleural Cavity, External Approach (ICD-10-PCS; 2021-09-19)
PROC: 0W9930Z Drainage of Right Pleural Cavity with Drainage Device, Percutaneous Approach (ICD-10-PCS; principal; 2021-09-21)
DX: J93.83 Other pneumothorax (principal); E78.5 Hyperlipidemia, unspecified; J44.9 Chronic obstructive pulmonary disease, unspecified; K21.9 Gastro-esophageal reflux disease without esophagitis; F41.9 Anxiety disorder, unspecified; H54.7 Unspecified visual loss; Z87.891 Personal history of nicotine dependence; Z86.73 Personal history of transient ischemic attack (TIA), and cerebral infarction without residual deficits
CPT/HCPCS: 36415; 71045; 71250; 77012; 80048; 85027; 94640; 94664; 94760; 99156

== ENCOUNTER → 2021-09-18 | Outpatient (CLI) | payer MEDICARE ==
[~2021-09-18] MED LIST changes: +ACHD5005 PO; +CLOP75TA28 PO; +DICL100G13 TOP; +DIPH50CA33 PO; +EZET10TA49 PO; +FLUT1AER IH; +IBUP-1780 PO; +MAGN400T39 PO; +MULT-974 PO; +PANT40GR PO; +PANT40TA52 PO; +POTA99TA26 PO; +ROPI0.5T4 PO; +RT-ALBUINH IH; +UMEC62.5 PO
--- NOTE | 2021-09-18 14:25 | Diagnostic Imaging Report ---
EXAM: Chest radiograph. EXAM DATE: 09/18/2021. COMPARISON: 09/16/2021. HISTORY: Right-sided pneumothorax. TECHNIQUE: Inspiratory and expiratory views of the chest with lateral radiograph. FINDINGS: There is increasing right pneumothorax with now 5.1 cm of pleural separation (previously 2.8 cm). A right-sided pleural catheter is present. There is atelectasis within the right lung. The left lung is clear. No pleural effusion. Heart size is stable. Osseous structures are intact. IMPRESSION: Increasing right-sided pneumothorax with 5.1 cm of pleural separation. Dictated by: Dictated on workstation # [id number]
== END ==
LOC: RAD 13:48
PROVIDERS: ATTEND Surgery
DX: J93.9 Pneumothorax, unspecified (principal)
CPT/HCPCS: 71047

== ENCOUNTER 2021-10-16 06:17 | Emergency (ER) | payer MEDICARE ==
[~2021-10-16] VITALS: Ht 185 cm; Wt 77.0 kg
[~2021-10-16 06:17] MED LIST changes: +CLOP75TA28 PO; +DICL100G13 TOP; +DIPH50CA33 PO; +EZET10TA49 PO; +FLUT1AER IH; +IBUP-1780 PO; +MAGN400T39 PO; +MULT-974 PO; +PANT40GR PO; +PANT40TA52 PO; +POTA99TA26 PO; +ROPI0.5T4 PO; +RT-ALBUINH IH; +UMEC62.5 PO
--- NOTE | 2021-10-16 06:33 | ED Respiratory ---
General Chief Complaint: Respiratory Problems Stated Complaint: PULLED CHEST TUBE OUT Source: patient, family Exam Limitations: no limitations History of Present Illness Date Seen by Provider: Oct 16, 2021 Time Seen by Provider: 06:20 Initial Comments Patient is a 61-year-old male who presents to the emergency department with a chief complaint of concern that his chest tube has been pulled out. He woke up just prior to arrival extremely short of breath. Noticed the tube in his chest was "out" with the holes in the tube exposed outside the skin. Patient was just discharged from [facility] a few days ago with the chest tube in place. Tells me that he has a history of stroke in 2016, is on Plavix. Does not take medications for blood pressure no history of heart disease. Patient states he is a smoker. He states they tried to use "fix a flat" on his lungs a couple of times and he has an appointment with Dr. Burkett at [facility] tomorrow. Denies any significant pain at this time but states he does feel very short short of breath. No recent fevers, chills. Nonproductive cough. No nausea or vomiting. No abdominal pain. No problems with bowel or bladder. Allergic to aspirin. All other review of systems reviewed and negative except as stated. Timing/Duration: this morning Severity: moderate Associated Symptoms: shortness of breath Allergies and Home Medications Allergies Uncoded Allergies: asprin (Allergy, Unknown, soa, 09/26/15) Patient Home Medication List Home Medication List Reviewed: Yes Albuterol Sulfate (Proair Hfa) 1 Puff Puff, 2 PUFF IH Q4H PRN for SHORTNESS OF BREATH, (Reported) Entered as Reported by: KJ BOLAÑOS on 09/19/21 08 Clopidogrel Bisulfate (Clopidogrel) 75 Mg Tablet, 75 MG PO DAILY, (Reported) Entered as Reported by: KJ BOLAÑOS on 09/19/21 0824 Diclofenac Sodium (Diclofenac Sodium) 100 Gm Gel..gram., 1 APPLIC TOP Q6H PRN for PAIN-MILD (1-4), (Reported) Entered as Reported by: KJ BOLAÑOS on 09/19/21 0830 Diphenhydramine HCl (Diphenhydramine HCl) 50 Mg Capsule, 150-200 MG PO HS, (Reported) Entered as Reported by: KJ BOLAÑOS on 09/19/21 0832 Ezetimibe (Ezetimibe) 10 Mg Tablet, 10 MG PO HS, (Reported) Entered as Reported by: Nadia Cunningham on 09/18/21 1841 Fluticasone/Vilanterol (Breo Ellipta 100-25 Mcg INH) 1 Each Blst.w.dev, 1 EACH IH DAILY, (Reported) Entered as Reported by: KJ BOLAÑOS on 09/19/21 0828 Hydrocodone/Acetaminophen (Hydrocodone-Acetamin 5-325 mg) 1 Each Tablet, 1 TAB PO Q4H PRN for PAIN-MODERATE (5-7) Prescribed by: RACHEL MAYEN on 09/16/21 1407 Ibuprofen (Ibuprofen) 800 Mg Tablet, 800 MG PO Q6H PRN for PAIN-MILD (1-4), (Reported) Entered as Reported by: KJ BOLAÑOS on 09/19/21 08 Magnesium Oxide (Magnesium) 400 Mg Tablet, 400 MG PO DAILY, (Reported) Entered as Reported by: KJ BOLAÑOS on 09/19/21 08 Multivitamin (Multi-Vitamin Daily) 1 Each Tablet, 1 EACH PO DAILY, (Reported) Entered as Reported by: KJ BOLAÑOS on 09/19/21 08 Pantoprazole Sodium (Pantoprazole Sodium) 40 Mg Tablet.dr, 40 MG PO DAILY, (Reported) Entered as Reported by: KJ BOLAÑOS on 09/19/21 0834 Potassium Gluconate (Potassium) 99 Mg Tablet, 99 MG PO DAILY, (Reported) Entered as Reported by: KJ BOLAÑOS on 09/19/21 0831 Ropinirole HCl (Ropinirole HCl) 0.5 Mg Tablet, 1-1.5 MG PO HS, (Reported) Entered as Reported by: KJ BOLAÑOS on 09/19/21 08 Umeclidinium [place] (Incruse Ellipta) 62.5 Mcg Blst.w.dev, 1 PUFF PO DAILY, (Reported) Entered as Reported by: KJ BOLAÑOS on 09/19/21 08 Review of Systems Review of Systems Constitutional: see HPI EENTM: no symptoms reported Respiratory: cough, short of breath Cardiovascular: no symptoms reported Gastrointestinal: no symptoms reported Genitourinary: no symptoms reported Musculoskeletal: no symptoms reported Skin: no symptoms reported Psychiatric/Neurological: No Symptoms Reported All Other Systems Reviewed Negative Unless Noted: Yes Past Qczqtdy-Djupfy-Mwtzrp Hx Patient Social History Tobacco Use?: Yes Substance use?: Yes Substance type: Marijuana Alcohol Use?: Yes Alcohol Frequency: Rarely Pt feels they are or have been: No Seasonal Allergies Seasonal Allergies: No Past Medical History Surgery/Hospitalization HX: PMH: CVA, HIGH CHOLESTEROL, GERD, chest tube Orthopedic Family Medical History No Pertinent Family Hx Physical Exam Vital Signs - First Documented 10/16/21 06:19 Temp 36.8 Pulse 68 Resp 26 B/P (MAP) 116/90 (99) Pulse Ox 94 O2 Delivery Nasal Cannula O2 Flow Rate 2.00 Capillary Refill : Height: 6'1" Weight: 160lbs. oz. 72.651835lm; 22.49 BMI Method: General Appearance: WD/WN, mild distress HEENT: PERRL/EOMI, other (dry oral mucosa) Neck: non-tender, full range of motion, supple, normal inspection Respiratory: no accessory muscle use, other (diminished BS on the right upper; tiny amount of subcutaneous air felt along the right lateral chest wall; slight increased work of breathing - room air sat 89%) Cardiovascular: regular rate, rhythm Gastrointestinal: non tender, soft Extremities: normal range of motion, normal inspection Neurologic/Psychiatric: alert, normal mood/affect, oriented x 3 Skin: normal color, warm/dry Progress/Results/Core Measures Suspected Sepsis SIRS Temperature: Pulse: Respiratory Rate: Blood Pressure / Mean: Results/Orders My Orders Orders - LETY LAURA MD Chest 1 View, Ap/Pa Only (10/16/21 06:23) Vital Signs/I&O 10/16/21 10/16/21 06:19 06:19 Temp 36.8 Pulse 68 Resp 26 B/P (MAP) 116/90 (99) Pulse Ox 94 O2 Delivery Nasal Cannula Nasal Cannula O2 Flow Rate 2.00 3.00 Capillary Refill : Progress Note #1: Time: 06:58 Progress Note Discussion with patient regarding goals of care/treatment. He is very upset with the care provided here earlier in the month as he states he was told by Joel that the initial "tubes were put in the wrong place". He is aware he has a large mass in the right lung and states "i don't want to know what it is" and is not having a biopsy done. He states that Dr Burkett offered him multiple options and he has an appointment to see him tomorrow to discuss them; these include a possible pneumonectomy. He states he would like to be transferred back to [facility]. His oxygen saturation are 92-93% on 4L O2 per nasal cannula. He is speaking in complete sentences and exhibiting no signs of respiratory distress, although RR is 28. No wheezing, diminished BS apical right lung, pulse is in the 80's and BP is currently 102/78 No signs of tension on the CXR, left lung is well aerated. I can see the Chest tube running along the right lateral ribs almost reaching the diaphragm but not visible in the chest cavity. His pneumothorax is "moderate" per radiology read. Will call over to [facility] to discuss with Dr Burkett Progress Note #2: Time: 07:30 Progress Note I discussed patient care with Dr. Burkett at [facility]. He states that he would be willing to take the patient in consultation to the intensive care unit at [facility]. He states that the patient's options at that point would likely be primarily thoracotomy, a big surgery to remove the lung or to tack up the pleura and manually repair the pneumothorax. He states alternatively the patient can be discharged home on oxygen, the tube remaining in place and he will see him in clinic tomorrow. Dr. Burkett did say that at no point during his hospitalization did anyone have the "palliative care" talk with the patient. He states he believes that this needs to be done. The patient's goals of care need to be discussed. I went into the room and talked to the patient and his son about all of this. His son is questioning "how do they know it is cancer". I advised him with medical history and smoking history and the way the CAT scan appears the likelihood of an aggressive cancer is very high. Dr. Weiner is convinced that this is a cancer. The patient is adamant that he will not do chemotherapy because nobody survives chemotherapy. I have provided the patient with his options including transfer to [facility] to the intensive care unit to undergo surgery versus going home on oxygen vs transfer to a bigger institution such as . After lengthy of discussion with the patient's nurse MARIO Dennis present the patient ultimately decided that he would like to go home on oxygen and think about his options and follow-up with Dr. Burkett in clinic tomorrow. He is quite agitated. He does not really seem to quite grasp the gravity of his situation. I did try several times to explain the seriousness. Dr Burkett at one point stated that he did not believe that the patient would make it to [facility] and I communicated this to the patient, this seemed to shock him. However he is still adamant about not wanting chemotherapy or even a biopsy of the lesion. He seems to think that just taking it out would cure the problem. Ultimately will call [facility] for home oxygen and discharge the patient to home. He is concerned about the chest tube being pulled. I offered to put another anchoring stitch in the skin and try to tether it down. I advised him that if he had worsening shortness of breath or chest pain or other emergent concerns that he could obviously come back here to this hospital and we can transfer him to [facility]. I did advise him there was no predicting the pos sibilities of what could happen after discharge but that he is always welcome back to this hospital for any concerns or changes. Dr Burkett did advise me to leave the tube in place where it is currently. Progress Note #3: Time: 07:48 Progress Note Call made to [facility] [employer] They are bringing home oxygen to the ER for the patient. Progress Note #4: Time: 08:23 Progress Note Called back into the room once home health had arrived with the oxygen the patient is now reconsidering transfer to [facility]. I was able to print out a picture of his chest x-ray and show it to him. He states he was not made aware that the tumor was big he was not aware of the potentiality of the agg ressiveness of the tumor. He is very concerned about the placement of the chest tube. His son has talked to his sister and they have decided ultimately now that they wish to be transferred to [facility] for further management of this issue. Progress Note #5: Time: 09:[address] Ziegler at [facility] called back at this time and accepts the patient. Anticipate a Cardio bed intitially. Direct Call will call back with bed assignment, Progress Note #6: Time: 13:32 Progress Note Got called into the patient's room at approximately 1245. He is getting very anxious and agitated about having to wait. Patient states that he talk to somebody who told him that he could be direct admitted tomorrow to the hospital, desiring discharge again with home oxygen. I was able to calm him down a little bit by letting his son go and get him some food and also giving him a TV remote. Patient had pulled off his oxygen and as he is so agitated and talking so quickly his oxygen saturations of actually stayed up at about 92%. Notified by Joel that room assigned. Waiting to have the bed cleaned. Will be going to room 223. Progress Note #7: Time: 15:15 Progress Note Patient has been up and ambulated to the bathroom. No oxygem - when he got back to bed, again increased work of breathing and some audible wheezes. Sats stayed up at 92% with walking however. He keeps pulling off his oxygen and monitoring leads. He had been quite agitated and upset about the length of time it has taken to get a bed. I have offerered medications for anxiety repeatedly, nicotine patch, food, drink, blankets, tv. He is also up set that "nobody is telling the same story"; at one point upset at me because i "told (me) I had to stay". We went through the timeline (again) of today and I reminded him he changes his mind and wanted to go to [facility] (while home oxygen company at the bedside). I am not quite sure if he is confused or manipulative at this point. Either way, he has finally settled down, is being more polite and compliant with nurses, EMS should be here in about 20 min to take him to [facility]. VSS at this time, Last O2 sat I observed was 91% room air. Diagnostic Imaging Diagonstic Imaging: Xray Plain Films/CT/US/NM/MRI: chest Comments [facility]. [place], [place] NAME: ANDREE GARZA [facility] REC#: [id number] PT STATUS: REG ER : 1960 PHYSICIAN: LETY LAURA MD ADMIT DATE: 10/16/21/ER Draft Date of Exam:10/16/21 CHEST 1 VIEW, AP/PA ONLY INDICATION: Chest tube removal. Comparison with 09/21/2021. FINDINGS: There is a moderate pneumothorax again noted on the right, predominantly in the upper lung. There does appear to be pleural scarring in the mid chest level. There is considerable density in the right lower lobe which may be atelectatic though underlying infiltrate or mass cannot be excluded. The left lung is well aerated and clear. Heart is not enlarged. IMPRESSION: There has been recurrent pneumothorax on the right moderate in nature. Dictated on workstation # [id number] Dict: 10/16/21630 Trans: 10/16/2148 CV [id number] Interpreted by: CHILANGO CHASE MD Electronically signed by: Critical Care Note Critical Care Start Time: 06:20 Stop Time: 07:41 Total Time (minutes) 40 minutes critical care time in evaluation and management of this patient with mild respiratory distress and hypoxemia. Time includes initial evaluation and management with application of supplemental oxygen for hypoxemia. Physical examination, review of the medical record. Extensive discussion with patient's treating cardiothoracic surgeon at outlying facility, extensive discussion on multiple occasions with the patient and family member at the bedside. Departure Impression Primary Impression: Hypoxia Additional Impressions: Pneumothorax Qualified Codes: J93.9 - Pneumothorax, unspecified Mass of right lung COPD (chronic obstructive pulmonary disease) Qualified Codes: J44.9 - Chronic obstructive pulmonary disease, unspecified Disposition: XFER SHT-TRM HOSP Condition: Stable Transfer Transfer Reason: Exceeds level of care Time Spoke to Accepting Phy: 09:19 Transfer Progress Notes Discussed with Dr Rogers Transfer Time: 15:30 Transfer Facility: [facility] Method of Transfer: EMS Departure-Patient Inst. Referrals: NO,LOCAL PHYSICIAN (PCP/Family) Primary Care Physician Patient Instructions: Pneumothorax (Collapsed Lung) Add. Discharge Instructions: Leave the chest tube in place; try not to pull or tug or have tension on the t ubing. We have sent you home on home oxygen, keep this on at all times. If you get in distress with your breathing or have any other emergent, concerning symptoms, please come back to the Emergency Department for re- evaluation. Please keep your appointment with Dr Burkett tomorrow. Images Torso/Trunk 1 - Other-See Progress Note LETY LAURA MD Oct 16, 2021 06:33
--- NOTE | 2021-10-16 06:48 | Diagnostic Imaging Report ---
INDICATION: Chest tube removal. Comparison with 09/21/2021. FINDINGS: There is a moderate pneumothorax again noted on the right, predominantly in the upper lung. There does appear to be pleural scarring in the mid chest level. There is considerable density in the right lower lobe which may be atelectatic though underlying infiltrate or mass cannot be excluded. The left lung is well aerated and clear. Heart is not enlarged. IMPRESSION: There has been recurrent pneumothorax on the right moderate in nature. Dictated by: Dictated on workstation # [id number]
[2021-10-16 16:15] VITALS: BP 114/78
== END 2021-10-16 16:15 | disposition short-term general hospital (02) ==
LOC: EDUNIT# 06:17 → ER 06:19
DX: R09.02 Hypoxemia (principal); J93.9 Pneumothorax, unspecified; R91.8 Other nonspecific abnormal finding of lung field; J44.9 Chronic obstructive pulmonary disease, unspecified; Z72.0 Tobacco use; Z88.6 Allergy status to analgesic agent; Z79.02 Long term (current) use of antithrombotics/antiplatelets
CPT/HCPCS: 71045